=== PATIENT | male | born 1955 | race Caucasian/White ===

== ENCOUNTER 2017-07-10 12:02 | Emergency (ER) | payer MEDICAID, MEDICARE, OTHER, SELFPAY ==
[2017-07-10] MEDS ORDERED: Sodium Chloride 0.9% 10 ML Syringe FLUSH PRN (12:36)
--- NOTE | 2017-07-10 12:44 | EDM.PDOC ---
ED HPI GENERAL MEDICAL PROBLEM - General Chief Complaint: Back Pain or Injury Stated Complaint: FACE AN LEFT SIDE CUTS Time Seen by Provider: 07/10/17 12:25 Source of Information: Reports: Patient, EMS, EMS Notes Reviewed History Limitations: Reports: No Limitations - History of Present Illness INITIAL COMMENTS - FREE TEXT/NARRATIVE: Randolph is a resident of [facility] who was out walking to a store when he lost his balance and fell onto the sidewalk. There was no reported LOC. He was on the ground for about 5 minutes when a passerby stopped to help. EMS was summoned, and he was transported to [facility] ED. Upon arrival, his nonFBS 241 mg%. He is alert, orientated and cooperative. He took his morning Novolog Insulin. He has had issues with sensation, falls, and minor injuries inthe past. 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 Left Face Pain Score (Numeric/FACES): 4 left knee Pain Score (Numeric/FACES): 4 left wrist Pain Score (Numeric/FACES): 9 neck Pain Score (Numeric/FACES): 3 - Related Data Allergies Allergy/AdvReac Type Severity Reaction Status Date / Time acetaminophen Allergy Other Verified 07/10/17 12:21 [From Contac Cold-Flu Day and Night] chlorpheniramine Allergy Other Verified 07/10/17 12:21 [From Contac Cold-Flu Day and Night] phenylephrine Allergy Other Verified 07/10/17 12:21 [From Contac Cold-Flu Day and Night] Past Medical History Endocrine/Metabolic History: Reports: Diabetes, Type II Review of Systems - Review of Systems Review Of Systems: See Below Constitutional: Reports: No Symptoms Eyes: Reports: No Symptoms Ears: Reports: No Symptoms Nose: Reports: No Symptoms Mouth/Throat: Reports: No Symptoms Respiratory: Reports: No Symptoms Cardiovascular: Reports: No Symptoms GI/Abdominal: Reports: No Symptoms Genitourinary: Reports: No Symptoms Musculoskeletal: Reports: Back Pain (intrascapular), Hand Pain (left hand aching , old deformity of L thumb) Skin: Reports: Bruising, Other (multiple abrasions of the L knee, face, and L hand) Neurological: Reports: Numbness, Pre-Existing Deficit, Difficulty Walking Psychiatric: Reports: No Symptoms ED EXAM, GENERAL - Physical Exam Exam: See Below Exam Limited By: No Limitations General Appearance: Alert, WD/WN, No Apparent Distress Eye Exam: Bilateral Eye: EOMI, Normal Inspection, PERRL Ears: Normal External Exam Nose: Normal Inspection Throat/Mouth: Normal Inspection, Normal Oropharynx Head: Normocephalic, Facial Tenderness (left face with abrasions and contusions) Neck: Normal Inspection, Supple, Non-Tender Respiratory/Chest: Lungs Clear, Normal Breath Sounds, Chest Non-Tender Cardiovascular: Regular Rate, Rhythm, No Murmur GI/Abdominal: Normal Bowel Sounds, Soft, Non-Tender, No Organomegaly, No Distention, No Mass, Pelvis Stable (Male) Exam: Deferred Rectal (Males) Exam: Deferred Back Exam: Normal Inspection, Paraspinal Tenderness (upper back intrascapular) Extremities: Other (L hand with some ecchymoses, deformity of L thumb (old)) Neurological: Alert, Oriented, CN II-XII Intact, Abnormal Gait, Sensory/Motor Deficit Psychiatric: Flat Affect Skin Exam: Warm, Dry, Ecchymosis, Other (abrasions) Lymphatic: No Adenopathy Course - Vital Signs Text/Narrative:: Following assessment at the [facility] ED, and IV was started in the RUE and 2L of NS administered over 2 hours. Superficial wounds were cleaned. X rays of L hand confirmed an oblique fracture of proximal 5th MC in good position. Screening labs were satisfactory. Following IV fluids, orthostasis remained, but observation during ambulation with a wheeled walker was satisfactory. He was administered Ibuprofen 400 mg po for pain management. Last Recorded V/S: Last Vital Signs Temp 36.7 C 07/10/17 12:24 Pulse 93 07/10/17 12:24 Resp 18 07/10/17 12:24 BP 120/58 L 07/10/17 12:24 Pulse Ox 97 07/10/17 12:24 Orthostatic Blood Pressure [ 93/58 stand] Orthostatic Blood Pressure [ 106/64 Sitting] Orthostatic Blood Pressure [ 120/70 Supine] - Orders/Labs/Meds Orders: Active Orders 24 hr Category Date Time Status Sodium Chloride 0.9% [Normal Saline] 2,000 ml Med 07/10/17 12:45 Active IV ASDIRECTED Sodium Chloride 0.9% [Saline Flush] Med 07/10/17 12:36 Active 10 ml FLUSH ASDIRECTED PRN Peripheral IV Insertion Adult [OM.PC] Routine Oth 07/10/17 12:36 Ordered Medication Orders Sodium Chloride (Normal Saline) 2,000 mls @ 999 mls/hr IV ASDIRECTED [facility] Last Admin: 07/10/17 13:27 Dose: 999 mls/hr Sodium Chloride (Saline Flush) 10 ml FLUSH ASDIRECTED PRN PRN Reason: Keep Vein Open Labs: Laboratory Tests 07/10/17 07/10/17 07/10/17 Range/Units 12:18 12:51 12:51 WBC 12.4 H (4.5-12.0) X10-3/uL RBC 5.14 (4.30-5.75) x10(6)uL Hgb 15.5 (11.5-15.5) g/dL Hct 44.8 (30.0-51.3) % MCV 87.1 (80-96) fL MCH 30.2 (27.7-33.6) pg MCHC 34.7 (32.2-35.4) g/dL RDW 12.3 (11.5-15.5) % Plt Count 250 (125-369) X10(3)uL MPV 7.4 (7.4-10.4) fL Add Manual Diff Yes Neutrophils % (Manual) 79 (46-82) % Lymphocytes % (Manual) 12 L (13-37) % Monocytes % (Manual) 9 (4-12) % Sodium 138 (135-145) mmol/L Potassium 4.2 (3.5-5.3) mmol/L Chloride 100 (100-110) mmol/L Carbon Dioxide 27 (21-32) mmol/L BUN 25 H (7-18) mg/dL Creatinine 1.2 (0.70-1.30) mg/dL Est Cr Clr Drug Dosing 76.35 mL/min Estimated GFR (MDRD) > 60 (>60) BUN/Creatinine Ratio 20.8 H (9-20) Glucose 230 H (80-116) mg/dL POC Glucose 215 H (80-116) mg/dL Calcium 9.8 (8.6-10.2) mg/dL Urine Color (YELLOW) Urine Appearance (CLEAR) Urine pH (5.0-6.5) Ur Specific Gypsy (1.010-1.025) Urine Protein (NEGATIVE) mg/dL Urine Glucose (UA) (NEGATIVE) mg/dL Urine Ketones (NEGATIVE) mg/dL Urine Occult Blood (NEGATIVE) Urine Nitrite (NEGATIVE) Urine Bilirubin (NEGATIVE) Urine Urobilinogen (NEGATIVE) mg/dL Ur Leukocyte Esterase (NEGATIVE) Urine RBC (0) Urine WBC (0) Ur Squamous Epith Cells (NS,R,O) Urine Bacteria (NS) 07/10/17 Range/Units 15:18 WBC (4.5-12.0) X10-3/uL RBC (4.30-5.75) x10(6)uL Hgb (11.5-15.5) g/dL Hct (30.0-51.3) % MCV (80-96) fL MCH (27.7-33.6) pg MCHC (32.2-35.4) g/dL RDW (11.5-15.5) % Plt Count (125-369) X10(3)uL MPV (7.4-10.4) fL Add Manual Diff Neutrophils % (Manual) (46-82) % Lymphocytes % (Manual) (13-37) % Monocytes % (Manual) (4-12) % Sodium (135-145) mmol/L Potassium (3.5-5.3) mmol/L Chloride (100-110) mmol/L Carbon Dioxide (21-32) mmol/L BUN (7-18) mg/dL Creatinine (0.70-1.30) mg/dL Est Cr Clr Drug Dosing mL/min Estimated GFR (MDRD) (>60) BUN/Creatinine Ratio (9-20) Glucose (80-116) mg/dL POC Glucose (80-116) mg/dL Calcium (8.6-10.2) mg/dL Urine Color Yellow (YELLOW) Urine Appearance Clear (CLEAR) Urine pH 6.0 (5.0-6.5) Ur Specific Gypsy 1.015 (1.010-1.025) Urine Protein Negative (NEGATIVE) mg/dL Urine Glucose (UA) >1000 H (NEGATIVE) mg/dL Urine Ketones Negative (NEGATIVE) mg/dL Urine Occult Blood Negative (NEGATIVE) Urine Nitrite Negative (NEGATIVE) Urine Bilirubin Negative (NEGATIVE) Urine Urobilinogen Normal (NEGATIVE) mg/dL Ur Leukocyte Esterase Negative (NEGATIVE) Urine RBC 0-5 (0) Urine WBC 0-5 (0) Ur Squamous Epith Cells Rare (NS,R,O) Urine Bacteria Few H (NS) Meds: Medications Generic Name Dose Route Start Last Admin Trade Name Freq PRN Reason Stop Dose Admin Sodium Chloride 2,000 mls @ 999 mls/hr 07/10/17 12:45 07/10/17 13:27 Normal Saline IV 999 mls/hr ASDIRECTED KIRA Administration Sodium Chloride 10 ml 07/10/17 12:36 Saline Flush FLUSH ASDIRECTED PRN Keep Vein Open Discontinued Medications Generic Name Dose Route Start Last Admin Trade Name Freq PRN Reason Stop Dose Admin Ibuprofen 400 mg 07/10/17 16:13 Motrin PO 07/10/17 16:14 ONETIME ONE Departure - Departure Time of Disposition: 16:16 Disposition: Home, Self-Care 01 Condition: Fair Clinical Impression: Contusion, multiple sites, Abrasion, multiple sites, Fracture of fifth metacarpal bone of left hand - Discharge Information Referrals: Aristeo Arguello PA-C [Primary Care Provider] - Forms: ED Department Discharge - Problem List & Annotations (1) Abrasion, multiple sites SNOMED Code(s): 016836316 Code(s): T07.XXXA - UNSPECIFIED MULTIPLE INJURIES, INITIAL ENCOUNTER Status : Acute Current Visit: Yes Annotation/Comment:: Symptomatic cares, and local wound cares. (2) Contusion, multiple sites SNOMED Code(s): 536841414 Code(s): T07.XXXA - UNSPECIFIED MULTIPLE INJURIES, INITIAL ENCOUNTER Status : Acute Current Visit: Yes Annotation/Comment:: Analgesic of choice, rest, and gentle ROM. (3) Fracture of fifth metacarpal bone of left hand SNOMED Code(s): 540523960 Code(s): S62.307A - UNSP FRACTURE OF FIFTH METACARPAL BONE, LEFT HAND, INIT Status: Acute Current Visit: Yes Annotation/Comment:: The oblique fracture of 5th MC was managed with a removable splint. Splinting should be continued for approximately 3-4 weeks. - Problem List Review Problem List Initiated/Reviewed/Updated: Yes - My Orders Last 24 Hours: My Active Orders 07/10/17 12:36 Sodium Chloride 0.9% [Saline Flush] 10 ml FLUSH ASDIRECTED PRN Peripheral IV Insertion Adult [OM.PC] Routine 07/10/17 12:45 Sodium Chloride 0.9% [Normal Saline] 2,000 ml IV ASDIRECTED - Assessment/Plan Last 24 Hours: My Active Orders 07/10/17 12:36 Sodium Chloride 0.9% [Saline Flush] 10 ml FLUSH ASDIRECTED PRN Peripheral IV Insertion Adult [OM.PC] Routine 07/10/17 12:45 Sodium Chloride 0.9% [Normal Saline] 2,000 ml IV ASDIRECTED Plan: Follow up with PCP.
[2017-07-10] MEDS ORDERED: Sodium Chloride 0.9% 2,000 ML IV SCH (12:45)
--- NOTE | 2017-07-10 13:39 | CR ---
INDICATION: Fall, ecchymosis dorsum of hand, metacarpal area. LEFT HAND: Three views of the left hand were obtained and revealed an oblique fracture through the medial aspect of the proximal metaphysis of the fifth metacarpal, with 3-mm distraction due to slight rotation of the fracture fragment medially. Adequate position and alignment is suggested. Deformity is noted at the distal shaft and metaphysis of the second metacarpal, compatible with a healed fracture with deformity in that area. Narrowing of the ungual tuft at the thumb is of questionable significance, possibly due to previous injury. A fracture through the medial aspect of the ungual tuft of the second digit is noted that appears ununited and old. Mild degenerative changes are noted at the interphalangeal joints, especially DIP joints. Somewhat diminished bone density raises question of osteoporosis, especially periarticular, which further raises question of inflammatory arthritis such as RA. IMPRESSION: 1. Acute fracture proximal metaphysis fifth metacarpal with mild deformity. 2. Old fractures second metacarpal and distal phalanx second digit. 3. Possible osteoporosis, however, periarticular demineralization is most prominent, raising question of inflammatory arthritis. 4. Mild degenerative changes. 5. ASD with arterial calcifications noted at the level of the carpus. MTDD
[2017-07-10] MEDS ORDERED: Ibuprofen 400 MG Tab PO ONE (16:13)
== END 2017-07-10 18:35 | disposition home or self-care (01) ==
LOC: FB.ED 12:02
DX: S62.307A Unspecified fracture of fifth metacarpal bone, left hand, initial encounter for closed fracture (principal); S00.83XA Contusion of other part of head, initial encounter; S00.81XA Abrasion of other part of head, initial encounter; S80.212A Abrasion, left knee, initial encounter; S60.512A Abrasion of left hand, initial encounter; W19.XXXA Unspecified fall, initial encounter; Y92.480 Sidewalk as the place of occurrence of the external cause
CPT/HCPCS: 36415; 73130; 80048; 81001; 82962; 85025; 96360; 96361; 99284; A9270; J7040; J7050; 29125; J7030

== ENCOUNTER 2017-08-01 22:12 | Emergency (ER) | payer MEDICAID, OTHER ==
[2017-08-01] MEDS ORDERED: Morphine 2 MG/ML Syringe IVPUSH ONE (23:59)
[2017-08-01] MEDS ORDERED: Ondansetron 4 MG/2 ML SDV IVPUSH ONE (23:59)
[2017-08-02] MEDS ORDERED: Sodium Chloride 0.9% 1,000 ML IV SCH (00:30)
--- NOTE | 2017-08-02 11:24 | CR ---
INDICATION: Fall to left chest. Patient denies rib pain. LEFT RIBS WITHOUT CHEST: Four views of the left ribs were obtained and revealed healed fractures of the 3rd through 7th, and 8th left ribs posterolaterally. A definite acute fracture site, or other bony abnormality, was not identified. IMPRESSION: Old rib fractures on the left. MTDD
--- NOTE | 2017-08-02 11:26 | CR ---
INDICATION: Trauma. LEFT HIP WITH PELVIS: Frontal view of the pelvis with oblique and lateral views of the left hip revealed a transverse fracture through the neck of the femur on the left in adequate position and alignment. There are only minimal degenerative changes at the hip joints with the joint spaces well maintained. IMPRESSION: Left femoral neck fracture in adequate position and alignment. MTDD
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
== END 2017-08-02 00:59 ==
LOC: FB.ED 22:12
DX: S72.002A Fracture of unspecified part of neck of left femur, initial encounter for closed fracture (principal); S23.9XXA Sprain of unspecified parts of thorax, initial encounter; I10 Essential (primary) hypertension; E78.00 Pure hypercholesterolemia, unspecified; E11.319 Type 2 diabetes mellitus with unspecified diabetic retinopathy without macular edema; W19.XXXA Unspecified fall, initial encounter; Z88.6 Allergy status to analgesic agent; Z88.8 Allergy status to other drugs, medicaments and biological substances; Z79.82 Long term (current) use of aspirin; Z79.4 Long term (current) use of insulin; Z79.899 Other long term (current) drug therapy
CPT/HCPCS: 36415; 51702; 71100; 73502; 80048; 85025; 85610; 96361; 96374; 96375; 99284; J2270; J2405; J7040; 99285

== ENCOUNTER 2018-01-01 11:28 | Emergency (ER) | payer SELFPAY ==
[2018-01-01] MEDS ORDERED: Sodium Chloride 0.9% 10 ML Syringe FLUSH PRN (11:39)
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
[2018-01-01] MEDS ORDERED: Aspirin 81 MG Tab.Chew PO ONE ×2 (12:53→13:00)
[2018-01-01] MEDS ORDERED: Heparin Sodium 5,000 Units/ML Vial IVPUSH STA (12:57)
[2018-01-01] MEDS ORDERED: Heparin Sodium/0.45% NaCl 25,000 UNITS/500 ML BAG IV SCH (13:00)
[2018-01-01] MEDS ORDERED: Aspirin 81 MG Tab.EC PO ONE (13:05)
[2018-01-01] MEDS ORDERED: Heparin Sodium 5,000 Units/ML Vial IVPUSH ONE (13:15)
[2018-01-01] MEDS ORDERED: Levofloxacin/Dextrose 5%-Water 500 MG in Premix Bag 1 BAG IV ONE (13:19)
[2018-01-01] MEDS ORDERED: Levofloxacin/Dextrose 5%-Water 100 ML IV ONE (13:20)
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
== END 2018-01-01 14:30 ==
LOC: FB.ED 11:28
DX: I21.4 Non-ST elevation (NSTEMI) myocardial infarction (principal); R60.0 Localized edema; E78.00 Pure hypercholesterolemia, unspecified; I10 Essential (primary) hypertension; E11.319 Type 2 diabetes mellitus with unspecified diabetic retinopathy without macular edema; Z79.899 Other long term (current) drug therapy; Z79.4 Long term (current) use of insulin; Z79.82 Long term (current) use of aspirin
CPT/HCPCS: 36415; 71045; 80048; 81001; 83605; 83880; 84484; 85025; 85610; 87040; 93005; 96365; 96375; 99285; A9270; J1644; J1956

== ENCOUNTER 2019-02-26 08:33 | Day surgery (SDC) | payer MEDICARE, BC ==
[~2019-02-26 08:33] MED LIST: Lactated Ringers 1,000 ML IV PRN; Sodium Chloride 0.9% 10 ML Syringe FLUSH PRN
[2019-02-26] MEDS ORDERED: Ketamine 500 mg/10 ML MDV IV ONE (08:34)
[2019-02-26] MEDS ORDERED: Midazolam 1 MG/ML 2 ML SDV IV ONE (08:34)
[2019-02-26] MEDS ORDERED: fentaNYL 100 MCG/2 ML SDV IV ONE (08:34)
--- NOTE | 2019-02-26 16:16 | OR ---
DATE OF OPERATION: 02/26/2019 SURGEON: Nataliya Castro MD PREOPERATIVE DIAGNOSIS: Visually significant cataract, left eye. POSTOPERATIVE DIAGNOSIS: Visually significant cataract, left eye. PROCEDURES PERFORMED: Phacoemulsification with intraocular lens placement, left eye. ASSISTANTS: None. ANESTHESIA: Local with sedation. COMPLICATIONS: None. BLOOD LOSS: None. IMPLANTS: 15.0 diopter [id number], serial number [id number], lens implanted. CDE: 5.71. DESCRIPTION OF PROCEDURE: After risks and benefits were reviewed with the patient, consent was obtained in the preoperative area, and the operative eye was marked with a surgical pen. In the preoperative area, a pledget was used to dilate the pupil consisting of a mixture of phenylephrine 10%, cyclopentolate 2%, moxifloxacin 0.5%, and bupivacaine 0.75%. The patient was taken to the operating room, where a time-out was performed, and the patient was placed under monitored anesthesia care. Topical tetracaine was used for anesthesia. The operative eye was prepped and draped for ophthalmic surgery, and the microscope was brought into position and focussed. A paracentesis incision was made, followed by injection of preservative-free 1% lidocaine into the anterior chamber, followed by injection of Viscoat into the anterior chamber. A microkeratome blade was used to make a corneal limbal incision temporarily. A cystotome was used to make the beginning of the capsulorrhexis, which was carried around 360 degrees in a curvilinear fashion using Utrata forceps. A Pandey cannula with BSS was used to hydrodissect and hydrodelineate the nucleus. The nucleus was removed in a divide and conquer manner using phacoemulsification. Irrigation and aspiration were used to remove the remaining cortical material. Provisc was used to inflate the capsular bag, and a pre-loaded 15.0 [id number] diopter lens, serial number [id number] was injected into the capsular bag. A Sinskey hook was used to position and center the lens. Next, irrigation and aspiration was used to remove any remaining viscoelastic and cortical material from the anterior chamber. BSS on a cannula was used to inflate the anterior chamber and hydrate the wound. The wound was checked and found to be watertight. 1 mg of Moxifloxacin was injected into the anterior chamber. Drapes were removed and the eye was cleaned. A drop of brimonidine 0.15% and a drop of TobraDex was placed. The eye was shielded, and the patient was taken to the recovery room in stable condition. /[id number] MARCELLO/ROBBY CC: KAROLINA MCDANIEL MD MTDD
== END 2019-02-26 10:56 | disposition home or self-care (01) ==
LOC: FB.SDS 08:33
PROVIDERS: ATTEND Ophthalmology
DX: E11.36 Type 2 diabetes mellitus with diabetic cataract (principal); G20 Parkinson's disease; F02.80 Dementia in other diseases classified elsewhere, unspecified severity, without behavioral disturbance, psychotic disturbance, mood disturbance, and anxiety; I10 Essential (primary) hypertension; E78.5 Hyperlipidemia, unspecified; Z98.41 Cataract extraction status, right eye; Z79.899 Other long term (current) drug therapy; Z79.82 Long term (current) use of aspirin; Z79.4 Long term (current) use of insulin
CPT/HCPCS: 00142-QZ; 82962; J2250; J3010; J7120; V2632

== ENCOUNTER 2019-03-26 06:31 | Day surgery (SDC) | payer MEDICARE, BC ==
[2019-03-26] MEDS ORDERED: fentaNYL 100 MCG/2 ML SDV IV ONE (06:32)
[2019-03-26] MEDS ORDERED: Midazolam 1 MG/ML 2 ML SDV IV ONE (06:32)
[2019-03-26] MEDS ORDERED: Sodium Chloride 0.9% 10 ML Syringe FLUSH PRN (06:45)
[2019-03-26] MEDS ORDERED: Lactated Ringers 1,000 ML IV SCH (06:45)
[2019-03-26] MEDS ORDERED: Acetaminophen 325 MG Tab PO ONE (09:02)
--- NOTE | 2019-03-26 15:51 | OR ---
DATE OF OPERATION: 03/26/2019 SURGEON: Nataliya Castro MD PREOPERATIVE DIAGNOSIS: Visually significant cataract, right eye. POSTOPERATIVE DIAGNOSIS: Visually significant cataract, right eye. PROCEDURES PERFORMED: Phacoemulsification with intraocular lens placement, right eye. ASSISTANTS: None. ANESTHESIA: Local with sedation. COMPLICATIONS: None. BLOOD LOSS: None. IMPLANTS: Davie [id number] 12.5 diopter lens, serial number [id number], implanted. CDE: 2.31. DESCRIPTION OF PROCEDURE: After risks and benefits were reviewed with the patient, consent was obtained in the preoperative area, and the operative eye was marked with a surgical pen. In the preoperative area, a pledget was used to dilate the pupil consisting of a mixture of phenylephrine 10%, cyclopentolate 2%, moxifloxacin 0.5%, and bupivacaine 0.75%. The patient was taken to the operating room, where a time-out was performed, and the patient was placed under monitored anesthesia care. Topical tetracaine was used for anesthesia. The operative eye was prepped and draped for ophthalmic surgery, and the microscope was brought into position and focussed. A paracentesis incision was made, followed by injection of preservative-free 1% lidocaine into the anterior chamber, followed by injection of Viscoat into the anterior chamber. A microkeratome blade was used to make a corneal limbal incision temporarily. A cystotome was used to make the beginning of the capsulorrhexis, which was carried around 360 degrees in a curvilinear fashion using Utrata forceps. A Pandey cannula with BSS was used to hydrodissect and hydrodelineate the nucleus. The nucleus was removed in a divide and conquer manner using phacoemulsification. Irrigation and aspiration were used to remove the remaining cortical material. Provisc was used to inflate the capsular bag, and a pre-loaded [id number] 12.5 diopter lens, serial number [id number] was injected into the capsular bag. A Sinskey hook was used to position and center the lens. Next, irrigation and aspiration was used to remove any remaining viscoelastic and cortical material from the anterior chamber. BSS on a cannula was used to inflate the anterior chamber and hydrate the wound. The wound was checked and found to be watertight. 1 mg of Moxifloxacin was injected into the anterior chamber. Drapes were removed and the eye was cleaned. A drop of brimonidine 0.15% and a drop of TobraDex was placed. The eye was shielded, and the patient was taken to the recovery room in stable condition. /[id number] MARCELLO/TAMIEL CC: KAROLINA MCDANIEL MD MTDD
== END 2019-03-26 09:38 ==
LOC: FB.SDS 06:31
PROVIDERS: ATTEND Ophthalmology
DX: E11.36 Type 2 diabetes mellitus with diabetic cataract (principal); I10 Essential (primary) hypertension; E78.5 Hyperlipidemia, unspecified; Z79.899 Other long term (current) drug therapy; Z79.891 Long term (current) use of opiate analgesic; Z79.4 Long term (current) use of insulin; Z79.82 Long term (current) use of aspirin
CPT/HCPCS: 00142; 66984; 82962; A9270; J2250; J3010; J7120; V2632